=== PATIENT | male | born 1990 | race Caucasian/White ===

== ENCOUNTER 2017-07-07 10:24 | Emergency (ER) | payer MEDICAID, SELFPAY ==
[2017-07-07 10:24] VITALS: BP 154/104; PULSE 97; RESP 14; TEMP 36.8; BMI 34.3
--- NOTE | 2017-07-07 10:38 | RAD_ITS ---
STUDY: X-RAY - LEFT HAND, ATTENTION FOURTH FINGER REASON FOR EXAM: Male, 26 years old. Pain following hyperextension injury. TECHNIQUE: 3 view(s) of the finger were obtained. COMPARISON: None. FINDINGS: Normal metacarpal head. Normal metacarpophalangeal joint. Normal proximal phalanx. Normal middle phalanx. Normal distal phalanx. Normal proximal interphalangeal joint. Normal distal interphalangeal joint. RAD/Finger(s) Min 2 Views IMPRESSION: Normal x-ray examination of the finger. Electronically Signed: Blaise Vasquez MD at 11:28 EST Tel [phone], Service support ,
--- NOTE | 2017-07-07 11:53 | ED.VISSUMM ---
- ER Visit Summary Date of Service: 07/07/17 Chief Complaint: Left ring finger pain History of Present Illness: The patient is a 26 M with no primary care physician. He is right-hand dominant. He reports that approximately 6 weeks ago he had a forced flexion injury of his left finger. He describes a mallet finger at that time. He has been wearing a splint that he got at [facility]. Reports that now is having a difficult time bending his finger. Patient reports he has a sharp pain at 6 out of 10 when he attempts to bend his finger and is pain-free at rest. He denies any paresthesias. Physical Examination: Vitals: Stable. Afebrile. General: Well-nourished and well-developed. Head: Normocephalic atraumatic. Neck: Supple, no lymphadenopathy. No JVD. Nontender. Cardiovascular: Regular rate and rhythm. No murmurs. Respiratory: No respiratory distress. Clear to auscultation bilaterally. Abdominal: Soft, nontender, nondistended, normal bowel sounds. No guarding, rebound, or peritoneal signs. Back: Nontender. Left ring finger: Mild tenderness palpation over the back of the middle phalanx. He has moderate difficulty with flexion at the DIP and PIP joints. He is neurovascular intact. Skin: Normal color, no rash. Neurologic: Alert and oriented ?3. Cranial nerves II through XII are intact. Normal strength and sensation. Psych: Normal affect. Test Results: X-ray shows no fracture. Emergency Department Course and Treatment: Patient is resting comfortably without complaint. Treatment Plan: I discussed the patient that I suspect that his flexor tendons are stiff/shortened from having the splint on for this period of time. I suggested that he slowly try to regain his range of motion. He is instructed to follow-up Dr. yue bassett in 1 week for another exam. Disposition: To home in improved and stable condition. Impression: 1. Left fourth finger pain. This note was generated with [employer] dictation software. It may contain incorrect words, spelling, and punctuation that were not noted in review of the chart prior to signing ED Disposition - Plan for ED Patient: Disposition: Home or Assisted Living Chief Complaint: Upper Extremity Injury Instructions: ED Fx Mallet Finger Prescriptions: Naproxen [Naprosyn] 500 mg PO BID PRN #20 tablet Referrals: Jerry Stack MD [STAFF PHYSICIAN] - 1 Week
--- NOTE | 2017-07-07 11:56 | ED.DCSUM_ITS ---
- ER Visit Summary Date of Service: 07/07/17 Chief Complaint: Left ring finger pain History of Present Illness: The patient is a 26 M with no primary care physician. He is right-hand dominant. He reports that approximately 6 weeks ago he had a forced flexion injury of his left finger. He describes a mallet finger at that time. He has been wearing a splint that he got at [facility]. Reports that now is having a difficult time bending his finger. Patient reports he has a sharp pain at 6 out of 10 when he attempts to bend his finger and is pain-free at rest. He denies any paresthesias. Physical Examination: Vitals: Stable. Afebrile. General: Well-nourished and well-developed. Head: Normocephalic atraumatic. Neck: Supple, no lymphadenopathy. No JVD. Nontender. Cardiovascular: Regular rate and rhythm. No murmurs. Respiratory: No respiratory distress. Clear to auscultation bilaterally. Abdominal: Soft, nontender, nondistended, normal bowel sounds. No guarding, rebound, or peritoneal signs. Back: Nontender. Left ring finger: Mild tenderness palpation over the back of the middle phalanx. He has moderate difficulty with flexion at the DIP and PIP joints. He is neurovascular intact. Skin: Normal color, no rash. Neurologic: Alert and oriented ?3. Cranial nerves II through XII are intact. Normal strength and sensation. Psych: Normal affect. Test Results: X-ray shows no fracture. Emergency Department Course and Treatment: Patient is resting comfortably without complaint. Treatment Plan: I discussed the patient that I suspect that his flexor tendons are stiff/shortened from having the splint on for this period of time. I suggested that he slowly try to regain his range of motion. He is instructed to follow-up Dr. yue bassett in 1 week for another exam. Disposition: To home in improved and stable condition. Impression: 1. Left fourth finger pain. This note was generated with [employer] dictation software. It may contain incorrect words, spelling, and punctuation that were not noted in review of the chart prior to signing ED Disposition - Plan for ED Patient: Disposition: Home or Assisted Living Chief Complaint: Upper Extremity Injury Instructions: ED Fx Mallet Finger Prescriptions: Naproxen [Naprosyn] 500 mg PO BID PRN #20 tablet Referrals: eJrry Stack MD [STAFF PHYSICIAN] - 1 Week
[2017-07-07 12:02] VITALS: BP 129/82; PULSE 80; RESP 18; O2SAT 98
== END 2017-07-07 12:03 | disposition home or self-care (01) ==
PROVIDERS: Emergency Provider Emergency Medicine
DX: M79.645 Pain in left finger(s) (principal); S69.92XA Unspecified injury of left wrist, hand and finger(s), initial encounter; X50.9XXA Other and unspecified overexertion or strenuous movements or postures, initial encounter; Y93.9 Activity, unspecified; Y92.9 Unspecified place or not applicable; Z87.442 Personal history of urinary calculi; Z72.0 Tobacco use
CPT/HCPCS: 73140; 99282

== ENCOUNTER 2018-01-03 13:03 | Emergency (ER) | payer SELFPAY ==
[2018-01-03 13:03] VITALS: BP 126/87; PULSE 64; RESP 18; TEMP 36.6; O2SAT 98; BMI 35.2
--- NOTE | 2018-01-03 13:26 | CT_ITS ---
STUDY: CT ABDOMEN AND PELVIS WITHOUT CONTRAST REASON FOR EXAM: Male, 27 years old. RIGHT FLANK PAIN/URINARY FREQUENCY HX-KIDNEY STONES RADIATION DOSAGE (If Supplied By Facility): CTDIvol = ( 13.61 ) mGy, DLP = ( 819.43 ) mGycm TECHNIQUE: Transaxial images were obtained from the dome of the diaphragm to the symphysis pubis without oral contrast, and without intravenous contrast. Sagittal and coronal images were reconstructed. Individualized dose optimization techniques were used for this CT. COMPARISON: March 17, 2012. FINDINGS: The visualized lung bases are unremarkable. The visualized portions of the heart are within normal limits. Normal liver. Normal gallbladder and extrahepatic biliary system. Normal spleen. Normal pancreas. Normal bilateral adrenal glands. There could be a 1 mm calculus in the right renal lower pole. There is minimal right hydroureteronephrosis. There is a 1 mm calculus in the distal right ureter just proximal to the ureterovesicular junction. Normal left kidney. Normal visualized stomach. Normal small intestine. Normal colon. The appendix is visualized and appears normal. Normal abdominal aorta. Normal inferior vena cava. Normal retroperitoneum. Normal urinary bladder. Normal abdominal wall. Normal osseous structures. CT/Abdomen/Pelvis without Cont IMPRESSION: There is minimal right hydroureteronephrosis. There is a 1 mm calculus in the distal right ureter just proximal to the ureterovesicular junction. There could be a 1 mm calculus in the right renal lower pole. Electronically Signed: Chuyita Cooper MD at 14:08 EDT , Service support ,
[2018-01-03] MEDS: Morphine 4 MG/ML Syringe IV (13:32)
[2018-01-03] MEDS: Ketorolac 15 MG/ML Vial IV (13:32)
[2018-01-03] MEDS: Ondansetron 4 MG/2 ML Vial IV (13:32)
[2018-01-03 13:44] LABS: Bacteria 0 SEEN /hpf (None Seen); Mucous, Urine 0 SEEN /hpf (<or=2+); Squamous Epithelial Cells - UA 0 SEEN /hpf (0-5); White Blood Cells 0 SEEN /hpf (0-5)
[2018-01-03 13:45] LABS: Color, Urine Yellow (Yellow); Glucose, Dipstick Normal (Normal); Ketone-Dipstick 5 mg/dl (Negative); Leukocyte Esterase-Dipstick 25 /ul (Negative); Nitrite-Dipstick Negative (Negative); Occult Blood-Urine 250 /ul (Negative); Protein-Dipstick 15 mg/dl (Negative); Specific Gravity, Urine 1.025 (1.002-1.030); Urine Bilirubin Dipstick Negative (Negative); Urine Clarity Clear (Clear); Urine Urobilinogen Normal (Normal)
[2018-01-03 13:52] LABS: Absolute Lymphocyte Count 5.09 X10^3/ul (0.83-4.51); Absolute Neutrophil Count 3.8 X10^3/uL (2.0-7.7); Basophil# 0.02 X10^3/uL; Basophil% 0.2 % (0-1); Eosinophil# 0.19 X10^3/uL; Eosinophils% 1.8 % (0-5); Hematocrit 42.9 % (40-54); Hemoglobin 14.9 g/dl (13.0-16.5); Lymphocyte # 5.09 X10^3/ul (4.0); Lymphocyte % 49.3 % (19-41); Mean Corp Hgb Conc 34.7 g/gl (32-36); Mean Corpuscular Hgb 29.3 pg (27.0-32.0); Mean Corpuscular Volume 84.4 fL (80-94); Mean Platelet Vol. 9.9 fl (6.2-12.0); Monocyte# 1.17 X10^3/uL; Monocyte% 11.3 % (0-10); Neutrophil # 3.84 X10^3/uL (2.7-7.7); Neutrophil % 37.3 % (47-70); Platelet Count 275 K/mm3 (150-450); RBC Distribution Width CV 12.4 % (11.6-14.6); RBC Distribution Width SD 37.8 fl (35.1-43.9); Red Blood Count 5.08 M/mm3 (4.6-6.2); White Blood Count 10.3 K/mm3 (4.4-11.0)
[2018-01-03 13:53] LABS: Differential Indicated SCAN CRITERIA MET; POSITIVE COUNT NO; POSITIVE DIFFERENTIAL YES; POSITIVE MORPHOLOGY NO
[2018-01-03 13:56] LABS: Red Blood Cells-Urine > 100 SEEN /hpf (0-5)
[2018-01-03 14:02] LABS: ALB/GLOB Ratio 1.2 RATIO (0.9-2.4); AST(SGOT) 16 U/L (15-37); Alanine Aminotransfer ALT/SGPT 25 U/L (16-61); Alkaline Phosphatase 64 U/L (45-117); Anion Gap 8 (5-15); BUN 12 mg/dL (7-18); BUN/Creat Ratio 11.5 RATIO (10-20); Calcium,Total 8.9 mg/dL (8.5-10.1); Chloride 108 mmol/L (98-107); Creatinine, Serum 1.04 mg/dL (0.70-1.30); EST Glomerular Filtration Rate 90 mL/min (>60); Est Glom Filt Rate - Afr Amer 109 mL/min (>60); Estimated Creatinine Clearance 109.19 ml/min; Globulin 3.4 g/dL (2.2-4.2); Glucose 128 mg/dL (74-106); Potassium 3.5 mmol/L (3.5-5.1); Protein, Total 7.4 g/dL (6.4-8.2); Sodium Level 139 mmol/L (136-145)
[2018-01-03 14:33] VITALS: BP 127/71; PULSE 83; RESP 15; O2SAT 98
--- NOTE | 2018-01-03 14:43 | ED.DCSUM_ITS ---
- ER Visit Summary Date of Service: 01/03/18 Chief Complaint: Flank pain History of Present Illness: The patient is a 27 M with right-sided flank pain for an hour prior to arrival. No fever or chills no chest pain shortness of breath just prior to arrival he had radiation to his testicle. He is nauseated. He has a history of kidney stone. Physical Examination: He appears in some distress, otherwise normal exam. Heart is regular lungs are clear abdomen is soft and nontender he does have right CVA tenderness. No tenderness to palpation over testicle. Emergency Department Course and Treatment: He is found to have a right-sided 1 mm stone at the UVJ minimal hydronephrosis there are some leukoesterase on the urinalysis therefore I will treat with antibiotics. Otherwise patient will be discharged in stable condition I expect this will pass. He will be referred to urology. Impression: Kidney stone This note was generated with [employer] dictation software. It may contain incorrect words, spelling, and punctuation that were not noted in review of the chart prior to signing ED Disposition - Plan for ED Patient: Disposition: Home or Assisted Living Chief Complaint: Flank Pain Prescriptions: Hydrocodone Bitart/Apap 5-325 [[place] 5/325] 1 - 2 tab PO Q4H PRN PRN 5 Days #20 tab PRN Reason: Pain Ondansetron [Zofran Odt] 4 mg PO Q8H PRN PRN #10 tab PRN Reason: Nausea Referrals: Denia Huynh MD [STAFF PHYSICIAN] -
--- NOTE | 2018-01-03 14:44 | ED.DEP ---
ED Disposition - Plan for ED Patient: Disposition: Home or Assisted Living Chief Complaint: Flank Pain Prescriptions: Hydrocodone Bitart/Apap 5-325 [[place] 5/325] 1 - 2 tab PO Q4H PRN PRN 5 Days #20 tab PRN Reason: Pain Ondansetron [Zofran Odt] 4 mg PO Q8H PRN PRN #10 tab PRN Reason: Nausea Smz/Tmp Ds [Bactrim Ds] 1 tab PO BID #14 tab Referrals: Denia Huynh MD [STAFF PHYSICIAN] -
[2018-01-03] MEDS: Ceftriaxone 1 GM/50 mL Premix x1 IV (15:00)
[2018-01-03 15:05] VITALS: BP 135/78; PULSE 63; RESP 14; O2SAT 98
[2018-01-03] MEDS: oxyCODONE 5 MG Tablet PO (15:15)
== END 2018-01-03 15:17 | disposition home or self-care (01) ==
PROVIDERS: Emergency Provider Emergency Medicine
DX: N13.2 Hydronephrosis with renal and ureteral calculous obstruction (principal); Z87.442 Personal history of urinary calculi
CPT/HCPCS: 74176; 80053; 81001; 85025; 96374; 96375; 99283; J7040; A4216; J2405

== ENCOUNTER 2018-01-04 00:07 | Emergency (ER) | payer SELFPAY ==
[2018-01-04 00:09] VITALS: BP 161/86; PULSE 99; RESP 16; TEMP 35.6; BMI 35.2
--- NOTE | 2018-01-04 00:42 | ED.VISSUMM ---
- ER Visit Summary Date of Service: 01/04/18 Chief Complaint: Right flank pain History of Present Illness: The patient is a 27 M stone earlier today. Patient returned states he cannot control the pain with his hydrocodone. Patient never had a prior kidney stone before this 1. States he is having nausea vomiting. Denies fever. Of note has multiple prior ER visits for dental pain. Patient denies drug abuse other than occasional marijuana. Physical Examination: Well-appearing young male. Vital signs are stable afebrile. H EENT exam unremarkable. Neck nontender. Lungs clear to auscultation bilaterally. Heart regular rate and rhythm no murmur. Abdomen is soft, nondistended, nontender normal bowel sounds no peritoneal signs. He is moving all 4 extremities are neurovascularly intact. Back nontender. He points the right flank there is no reproducible tenderness. Neurologic exam is awake and alert moving all 4 extremities no motor deficits. Test Results: I reviewed the patient's workup from earlier today which is basically unremarkable except for a distal right ureteral 1 mm stone. Tox was positive for cannabis which he admits he smokes marijuana and opiates which he was placed on first kidney stone. Emergency Department Course and Treatment: He will be treated with IV Toradol here. Treatment Plan: On repeat exam patient is doing very well at 01 57. He was actually sleeping comfortably. He will be discharged to home with a Toradol prescription. Disposition: discharge Impression: Acute right flank pain secondary to right distal ureteral calculi This note was generated with [employer] dictation software. It may contain incorrect words, spelling, and punctuation that were not noted in review of the chart prior to signing ED Disposition - Plan for ED Patient: Chief Complaint: Flank Pain Referrals: Care Physician,No Primary [Primary Care Provider] -
[2018-01-04] MEDS: proMETHazine 25 MG/ML Syringe 12.5 MG IV (00:49)
[2018-01-04] MEDS: Ketorolac 30 MG/ML Syringe IV (00:50)
[2018-01-04 01:05] LABS: Vista UDS pH Range 6
[2018-01-04 01:17] LABS: Amphetamine Urine VISTA NEGATIVE (<1000 ng/mL); Barbiturate Urine VISTA NEGATIVE (< 200 ng/mL); Benzodiazepine Urine VISTA NEGATIVE (< 200 ng/mL); Cocaine Urine VISTA NEGATIVE (< 300 ng/mL); Ecstacy Urine VISTA NEGATIVE (< 500 ng/mL); Methadone Urine VISTA NEGATIVE (< 300 ng/mL); PCP Urine VISTA NEGATIVE (< 25 ng/mL); THC Urine VISTA POSITIVE (< 50 ng/mL)
--- NOTE | 2018-01-04 02:00 | ED.DEP ---
ED Disposition - Plan for ED Patient: Disposition: Home or Assisted Living Chief Complaint: Flank Pain Instructions: ED Stone Renal W Colic Prescriptions: Ketorolac [Toradol] 10 mg PO Q4H #7 tab Referrals: Mohit Myles MD [STAFF PHYSICIAN] - 3-5 Days if not improving Additional Instructions: Plenty of fluids. Strain your urine looking for the past kidney stone. Toradol and pain meds as needed for flank pain until the stone is passed.
[2018-01-04 02:07] VITALS: BP 158/80; PULSE 90; RESP 18; O2SAT 96
== END 2018-01-04 02:08 | disposition home or self-care (01) ==
PROVIDERS: Emergency Provider Emergency Medicine
DX: N20.1 Calculus of ureter (principal); R10.9 Unspecified abdominal pain; F12.90 Cannabis use, unspecified, uncomplicated
CPT/HCPCS: 80307; 96374; 96375; 99283; A4216

== ENCOUNTER 2018-08-12 21:30 | Emergency (ER) | payer SELFPAY ==
[2018-08-12 21:31] VITALS: BP 152/101; PULSE 121; RESP 14; TEMP 36.6; O2SAT 97; BMI 33.2
[2018-08-12] MEDS: Ondansetron 4 MG/2 ML Vial IV (23:15)
[2018-08-12] MEDS: 0.9% Normal Saline 1,000 ML 1000 ML IV (23:15)
[2018-08-12] MEDS: Morphine 4 MG/ML Syringe IV (23:17)
[2018-08-12] MEDS: Famotidine 20mg IV Push Syringe Q24 300 MG IV (23:21)
[2018-08-12 23:23] VITALS: BP 145/85; PULSE 76; RESP 16; TEMP 36.6; O2SAT 97
[2018-08-12 23:37] LABS: Absolute Lymphocyte Count 1.08 X10^3/ul (0.83-4.51); Basophil# 0.01 X10^3/uL; Basophil% 0.1 % (0-1); Hematocrit 47.8 % (40-54); Hemoglobin 16.6 g/dl (13.0-16.5); Lymphocyte # 1.08 X10^3/ul (4.0); Mean Corp Hgb Conc 34.7 g/gl (32-36); Mean Corpuscular Hgb 28.5 pg (27.0-32.0); Mean Platelet Vol. 9.9 fl (6.2-12.0); Monocyte# 0.72 X10^3/uL; Monocyte% 7.3 % (0-10); Neutrophil # 7.98 X10^3/uL (2.7-7.7); Neutrophil % 81.3 % (47-70); POSITIVE COUNT NO; POSITIVE DIFFERENTIAL NO; POSITIVE MORPHOLOGY NO; Platelet Count 310 K/mm3 (150-450); RBC Distribution Width CV 12.9 % (11.6-14.6); RBC Distribution Width SD 38.7 fl (35.1-43.9); Red Blood Count 5.83 M/mm3 (4.6-6.2); White Blood Count 9.8 K/mm3 (4.4-11.0)
[2018-08-12 23:52] LABS: AST(SGOT) 21 U/L (15-37); Alanine Aminotransfer ALT/SGPT 31 U/L (16-61); Albumin, Serum 4.3 g/dL (3.2-5.0); Alkaline Phosphatase 76 U/L (45-117); Anion Gap 14 (5-15); BUN 10 mg/dL (7-18); BUN/Creat Ratio 9.5 RATIO (10-20); Bilirubin, Direct 0.17 mg/dL (0.00-0.30); Calcium,Total 9.1 mg/dL (8.5-10.1); Chloride 103 mmol/L (98-107); Creatinine, Serum 1.05 mg/dL (0.70-1.30); EST Glomerular Filtration Rate 89 mL/min (>60); Est Glom Filt Rate - Afr Amer 107 mL/min (>60); Estimated Creatinine Clearance 107.18 ml/min; Globulin 3.9 g/dL (2.2-4.2); Glucose 99 mg/dL (74-106); Lipase 82 U/L (73-393); Potassium 3.4 mmol/L (3.5-5.1); Protein, Total 8.2 g/dL (6.4-8.2); Sodium Level 135 mmol/L (136-145)
[2018-08-13] MEDS: 0.9% Normal Saline 1,000 ML 999 ML IV (00:15)
[2018-08-13] MEDS: Mag Hydrox/Al Hydrox/Simeth 30 ML UDC 15 ML PO (00:20)
--- NOTE | 2018-08-13 00:55 | ED.VISSUMM ---
- ER Visit Summary Date of Service: 08/13/18 Chief Complaint: Nausea, vomiting, diarrhea History of Present Illness: The patient is a 28 M with a 3-day history of nausea, vomiting, and diarrhea. He does report some upper abdominal pain. He had subjective fever. Patient has no significant past medical history and no prior surgeries. Physical Examination: Vital signs reveal blood pressure 152/101, temperature 97.9, heart rate 121, respiratory rate 14, pulse ox 97% on room air. Patient lying in bed in no acute distress. He does appear uncomfortable. Head neck examination reveals dry mucous membranes. Heart is tachycardic. Lungs sounds are clear. Abdomen is soft with mild epigastric tenderness. No guarding or rebound. Hypoactive bowel sounds are present. Test Results: CBC was normal white count. Hemoglobin is 16.6. Chemistry studies reveal sodium 135 potassium 3.4. Bicarb is 18. LFTs and lipase normal. Emergency Department Course and Treatment: Patient was given Zofran, morphine, and Pepcid. He was given 2 L of IV fluid. He was given p.o. Mylanta for some reflux symptoms. At this time on repeat evaluation patient states he feels significantly improved. He is able to tolerate p.o. Patient be discharged with prescription for Zofran and Pepcid. Treatment Plan: [] Disposition: Discharge Impression: 1. Dehydration 2. Viral gastroenteritis This note was generated with [employer] dictation software. It may contain incorrect words, spelling, and punctuation that were not noted in review of the chart prior to signing ED Disposition - Plan for ED Patient: Referrals: Care Physician,No Primary [Primary Care Provider] -
--- NOTE | 2018-08-13 00:57 | ED.DEP ---
ED Disposition - Plan for ED Patient: Disposition: Home or Assisted Living Instructions: ED Gastroenteritis Viral, ED Dehydration Prescriptions: Ondansetron [Zofran Odt] 4 mg PO Q8H PRN PRN #10 tablet PRN Reason: Nausea Famotidine [Pepcid] 20 mg PO BID #28 tablet Referrals: Mata Carlton DO [STAFF PHYSICIAN] - As Needed
[2018-08-13 01:11] VITALS: BP 144/94; PULSE 84; RESP 18; O2SAT 99
[2018-08-13] MEDS: Ondansetron ODT 4 MG Tablet PO (01:12)
== END 2018-08-13 01:38 | disposition home or self-care (01) ==
PROVIDERS: Emergency Provider Emergency Medicine
DX: E86.0 Dehydration (principal); A08.4 Viral intestinal infection, unspecified; Z87.891 Personal history of nicotine dependence
CPT/HCPCS: 80048; 80076; 83690; 85025; 96361; 96374; 96375; 99283; J7030; J2405; J3490